=== PATIENT | male | born 2000 | race Two or more races ===

== ENCOUNTER 2020-11-18 14:30 | Emergency (ER) | payer MEDICAID ==
[~2020-11-18] VITALS: Ht 180.3 cm; Wt 66.0 kg
[2020-11-18] MEDS ORDERED: IBUP-2029 MT (15:14)
[2020-11-18] MEDS ORDERED: IBUPROFEN 600MG TABLET PO ONE (15:15)
[2020-11-18 15:30] VITALS: BP 128/63
== END 2020-11-18 15:30 | disposition home or self-care (01) ==
LOC: ER 14:30
DX: S60.512A Abrasion of left hand, initial encounter (principal); M25.561 Pain in right knee; V49.9XXA Car occupant (driver) (passenger) injured in unspecified traffic accident, initial encounter; Y93.89 Activity, other specified; Y92.89 Other specified places as the place of occurrence of the external cause; Y99.8 Other external cause status
CPT/HCPCS: 99283